=== PATIENT | male | born 1985 | race Two or more races ===

== ENCOUNTER → 2024-11-17 | Outpatient (CLI) | payer MEDICAID, SELFPAY ==
--- NOTE | 2024-11-17 16:00 | XR_ITS ---
Examination: Liver Elastography Exam date and time: November 17, 2024 1620 hours INDICATIONS: Alcohol use disorder with elevated liver enzymes elevated bilirubin, elevated pro time low platelet count on laboratory examinations beginning 7 months ago as well as one month ago TECHNIQUE AND FINDINGS: Multiple sonographic images of the liver, including calculations of tissue stiffness average centimeters per second Liver 17.7 cm fatty infiltration mildly irregular contour Liver tissue stiffness average 2.25 mm/s in the normal range IMPRESSION: Cirrhosis Negative for liver fibrosis
== END | disposition home or self-care (01) ==
PROVIDERS: PCP Physician Assistant; Referring Provider Physician Assistant; Visit Provider Physician Assistant
DX: K74.60 Unspecified cirrhosis of liver (principal)
CPT/HCPCS: 76981